=== PATIENT | male | born 1980 | race African-American/Black ===

== ENCOUNTER 2021-12-24 00:20 | Emergency (ER) | payer SELFPAY | END 2021-12-24 02:15 | disposition home or self-care (01) | LOC: ERS 00:20 | DX: S63.613A Unspecified sprain of left middle finger, initial encounter (principal); W20.8XXA Other cause of strike by thrown, projected or falling object, initial encounter ==

== ENCOUNTER 2025-06-19 18:05 | Emergency (ER) | payer BC, SELFPAY | END 2025-06-19 20:35 | disposition home or self-care (01) | LOC: ERS 18:05 | DX: S63.295A Dislocation of distal interphalangeal joint of left ring finger, initial encounter (principal); W23.1XXA Caught, crushed, jammed, or pinched between stationary objects, initial encounter | CPT/HCPCS: 26770; 96372 ==